=== PATIENT | female | born 1940 ===

== ENCOUNTER 2016-07-09 09:00 | Day surgery (SDC) | payer MEDICAID, OTHER ==
[2016-07-05 09:59] VITALS: BMI 26.5
[2016-07-09] MEDS ORDERED: EPINEPHrine 1 mg/ml (1:1000) Inj ONE (10:01)
[2016-07-09] MEDS ORDERED: Lidocaine 2% Inj (20ml) ONE (10:01)
[2016-07-09] MEDS ORDERED: Dexmedetomidine Hydrochloride 100 mcg/ml (2ML) ONE (10:14)
[2016-07-09] MEDS ORDERED: Neostigmine Methylsulfate 3mg/3ml Syringe IV ONE (11:20)
[2016-07-09] MEDS ORDERED: Dexamethasone 4 mg/1 ml IVP PRN (11:59)
[2016-07-09] MEDS ORDERED: Albuterol 0.083% Inhal Sol (2.5 mg/3 mL) UD INH ONE (11:59)
[2016-07-09] MEDS ORDERED: Lactated Ringer's 1,000 ML IV ONE (12:00)
--- NOTE | 2016-07-09 15:02 | RAD ---
HISTORY: post EBUS COMPARISON: None available TECHNIQUE: Chest, one view. FINDINGS: Examination limited by habitus. LUNGS: Mild bibasilar atelectasis. Small left pleural effusion. No definite pneumothorax. Please note that chest x-ray has limited sensitivity for the detection of pulmonary masses. CARDIOVASCULAR: Heart size appears top normal. Atherosclerotic calcifications of the aorta. OSSEOUS STRUCTURES: Degenerative changes. VISUALIZED UPPER ABDOMEN: Unremarkable. OTHER FINDINGS: None. IMPRESSION: Mild bibasilar atelectasis. Small left pleural effusion.
[2016-07-09 15:52] VITALS: BP 113/53; PULSE 81; RESP 18; TEMP 97; O2SAT 100
--- NOTE | 2016-07-11 11:36 | OP ---
PROCEDURE DATE: 07/09/2016 PROCEDURE: Bronchoscopy, endoscopic transbronchial paratracheal node biopsy. ANESTHESIA: General after endotracheal intubation. SURGEON: Dr. Mohinder Olivera MD and Dr. Christensen. After intubating the patient, regular scope was introduced, and oral ____ was evaluated. The scope w as withdrawn, and special ____ ultrasound endoscopic bronchoscope was introduced ____, and under the guidance of the ultrasound, multiple needle aspirations of the paratracheal node was performed. Was reyna was done. The patient tolerated the procedure. Lei Olivera MD cc: [id number] TT: 07/11/2016 10:51:45 jn 07/11/2016 10:34:29
== END 2016-07-09 15:45 | disposition home or self-care (01) ==
LOC: C.SDS 09:00
PROVIDERS: ATTEND Internal Medicine Pulmonary Disease
DX: R91.8 Other nonspecific abnormal finding of lung field (principal)
CPT/HCPCS: 31652; 71010; 82948; 87070; 87101; 87116; 87181; 87206; 88104; 88108; 88172; 88305; 88342; J1100; J2710; J7120